=== PATIENT | male | born 1950 | race Caucasian/White ===

== ENCOUNTER 2019-05-23 19:17 | Observation (INO) | payer OTHER, MEDICARE ==
[~2019-05-23] VITALS: Ht 180.3 cm; Wt 63.6 kg
[2019-05-23] MEDS ORDERED: SEROQUEL100 MG PO (19:35)
[2019-05-23] MEDS ORDERED: PLAVIX75 MG PO (19:35)
[2019-05-23] MEDS ORDERED: LISINOPRIL10 MG PO (19:36)
--- NOTE | 2019-05-23 20:21 | NUR ---
50 ML URINE VOIDED
--- NOTE | 2019-05-23 20:24 | NUR ---
BLADDER SCANNER SHOWED 251 ML URINE
[2019-05-23 20:34] VITALS: BP 69/42
[2019-05-23 20:40] LABS: APPEARANCE TURBID (CLEAR); BILIRUBIN NEGATIVE (NEGATIVE); COLOR YELLOW (YELLOW); GLUCOSE NEGATIVE (NEGATIVE); KETONE NEGATIVE (NEGATIVE); NITRITE NEGATIVE (NEGATIVE); PROTEIN TRACE mg/dL (NEGATIVE); SPECIFIC GRAVITY 1.005 (1.005-1.020); UROBILINOGEN NORMAL (NORMAL)
[2019-05-23 20:41] LABS: AMORPHOUS SEDIMENT <1+ /lpf (NONE SEEN); BACTERIA MANY /hpf (NONE SEEN); EPITHELIAL CELLS 0-5 /hpf (0-5); RED CELLS - URINE 0-5 /hpf (0-5); WHITE CELLS - URINE 0-5 /hpf (0-5)
[2019-05-23 21:37] LABS: BASOPHILS 0.2 % (0-2); EOSINOPHILS 4.2 % (0-7); HEMATOCRIT 38.4 % (42.0-54.0); HEMOGLOBIN 13.2 g/dL (13.5-17.5); IMMATURE GRANULOCYTES 0.2 % (0-5); LYMPHOCYTES 44.7 % (15-50); MCH 33.3 pg (26.0-34.0); MCHC 34.4 g/dL (31.0-37.0); MEAN PLATELET VOLUME 10.2 fL (7.4-10.4); MONOCYTES 5.4 % (2-11); NEUTROPHILS 45.3 % (40-80); PLATELET COUNT 245 10x3/uL (130-400); RBC 3.96 10x6/uL (4.20-6.10); RDW 12.9 % (11.5-14.5)
--- NOTE | 2019-05-23 21:47 | NUR ---
90 CC URINE VOIDED
[2019-05-23 21:53] LABS: ALBUMIN 3.8 g/dL (3.4-5.0); ALKALINE PHOSPHATASE 74 U/L (46-116); ALT (SGPT) 21 U/L (10-68); BILIRUBIN - TOTAL 0.31 mg/dL (0.2-1.3); CALC OSMOLALITY 280 mosm/kg (275-300); CARBON DIOXIDE 25.4 mmol/L (21.0-32.0); CHLORIDE - SERUM 103 mmol/L (98-107); CREATININE - SERUM 0.9 mg/dL (0.6-1.3); GLUCOSE 82 mg/dL (74-106); POTASSIUM - SERUM 3.6 mmol/L (3.5-5.1); PROTEIN - SERUM 7.8 g/dL (6.4-8.2); SODIUM 140 mmol/L (136-145); UREA NITROGEN 20 mg/dL (7-18); eGFR NON AFRICAN AMERICAN 90 mL/min (90-120)
[2019-05-23 21:55] LABS: CREATINE KINASE 25 UL (21-232)
--- NOTE | 2019-05-23 22:52 | NUR ---
320 CC URINE VOIDED
--- NOTE | 2019-05-23 23:14 | NUR ---
PT'S HAS GIVEN VERBAL PERMISSION FOR HIS FRIEND DARON VALDEZ TO RECEIVE INFORMATION ON HIS MEDICAL CARE. [phone]
[2019-05-23] MEDS ORDERED: ALBUTEROL SULF8.5 GM INH (23:18)
--- NOTE | 2019-05-23 23:25 | NUR ---
REPORT GIVEN TO INGRIS NUNO
--- NOTE | 2019-05-23 23:30 | NUR ---
PT BP OBSERVED TO BE 55/30 RIGHT ARM. NS BOLUS STARTED IN PRESSURE BAG. NEW BP WITH MANUAL CUFF SYSTOLIC 98. NIBP LEFT ARM 100/70. EDP AWARE.
--- NOTE | 2019-05-23 23:50 | NUR ---
PATIENT RECEIVED TURKEY SANDWICH AND MILK PER REQUEST. REPOSITIONED IN BED PER REQUEST. URINATED IN URINAL PER REQUEST. PT THEN REQUESTS TO GO TO FLOOR ROOM. THIS NURSE NOTIFIED PT THAT SHE WILL GIVE REPORT TO FLOOR NURSE, AND TAKE HIM TO NEW ROOM WHEN POSSIBLE. PT DENIES FURTHER NEEDS AT THIS TIME. NO SIGNS DISTRESS NOTED. RESPIRATIONS APPEAR EVEN AND UNLABORED. WHEN ASKED IF I COULD CALL HIS FAMILY TO UPDATE, PT STATES "I HAVE ALREADY CALLED THEM. THEY WILL BE HERE TOMORROW." WILL CONTINUE TO MONITOR.
[2019-05-24] VITALS: BP 145/82
--- NOTE | 2019-05-24 00:22 | NUR ---
PT PRESENTED FROM ER ON STRETCHER, NO SIGNS OF DISTRESS, NO C/O PAIN AT THIS TIME. PT VSS, CL IN REACH, BED IN LOWEST POSITION. PT PLACED ON A ASHLEY ALARM, ALARM IS ON.
[2019-05-24 00:27] VITALS: BP 145/82; Ht 180.3 cm; Wt 63.6 kg
[2019-05-24 04:00] VITALS: BP 151/71
--- NOTE | 2019-05-24 07:45 | NUR ---
RECIEVE REPORT. RESTING IN BED WITH EYES CLOSED. ASHLEY ALARM ON. IV INFUSING ORDERED. RESPIRATIONS EVEN AND REGULAR. CONTINUE PLAN OF CARE AND SAFETY PRECAUTIONS.
[2019-05-24 07:58] LABS: BASOPHILS 0.3 % (0-2); EOSINOPHILS 4.1 % (0-7); HEMATOCRIT 34.2 % (42.0-54.0); HEMOGLOBIN 11.7 g/dL (13.5-17.5); IMMATURE GRANULOCYTES 0.2 % (0-5); LYMPHOCYTES 28.4 % (15-50); MCHC 34.2 g/dL (31.0-37.0); MCV 96.3 fL (80.0-100.0); MEAN PLATELET VOLUME 10.5 fL (7.4-10.4); MONOCYTES 6.6 % (2-11); NEUTROPHILS 60.4 % (40-80); PLATELET COUNT 227 10x3/uL (130-400); RBC 3.55 10x6/uL (4.20-6.10); RDW 12.9 % (11.5-14.5); WBC 5.8 10x3/uL (4.8-10.8)
[2019-05-24 08:00] LABS: APTT 31.3 SECONDS (22.8-39.4); INR 0.99 (0.85-1.17); PROTIME 12.6 SECONDS (11.6-15.0)
[2019-05-24 08:22] LABS: ALBUMIN 3.2 g/dL (3.4-5.0); ALKALINE PHOSPHATASE 64 U/L (46-116); ALT (SGPT) 19 U/L (10-68); BILIRUBIN - TOTAL 0.29 mg/dL (0.2-1.3); CALC OSMOLALITY 286 mosm/kg (275-300); CARBON DIOXIDE 22.3 mmol/L (21.0-32.0); CHLORIDE - SERUM 110 mmol/L (98-107); CREATININE - SERUM 0.8 mg/dL (0.6-1.3); GLUCOSE 82 mg/dL (74-106); MAGNESIUM - SERUM 1.9 mg/dL (1.8-2.4); PHOSPHOROUS 3.8 mg/dL (2.5-4.9); POTASSIUM - SERUM 4.5 mmol/L (3.5-5.1); PROTEIN - SERUM 6.1 g/dL (6.4-8.2); SODIUM 143 mmol/L (136-145); UREA NITROGEN 22 mg/dL (7-18); eGFR NON AFRICAN AMERICAN > 90 mL/min (90-120)
[2019-05-24 08:39] VITALS: BP 177/85
--- NOTE | 2019-05-24 10:21 | NUR ---
ALERT AND ORIENTED X4. SITTING UP IN BED. REFUSE PHYSICAL THERAPY. PATIENT STATES, "I DON'T WALK, I USE MY WHEELCHAIR. I DON'T NEED YAL, I'M LEAVING AT 11. I'M GOING TO MAKE THE DOCTOR DISCHARGE ME." EXPLAIN DISCHARGE HAS NOT BEEN ORDERED AND DOCTOR NOT ON FLOOR YET. PATIENT REPLIES, "I DON'T CARE, I'M LEAVING."
[2019-05-24 11:34] VITALS: BP 157/90
[2019-05-24 13:37] LABS: UDS - AMPHET NEGATIVE QUAL (NEGATIVE); UDS - BARB NEGATIVE QUAL (NEGATIVE); UDS - BENZO NEGATIVE QUAL (NEGATIVE); UDS - COCAINE NEGATIVE QUAL (NEGATIVE); UDS - OPIATE NEGATIVE QUAL (NEGATIVE); UDS - PCP NEGATIVE QUAL (NEGATIVE); UDS - THC POSITIVE QUAL (NEGATIVE)
[2019-05-24] MEDS ORDERED: LEVAQUIN750 MG PO (14:09)
--- NOTE | 2019-05-24 15:07 | MORECARE ---
CASE MANAGEMENT DISCHARGE SUMMARY PATIENT: MORRIS LAKHANI H UNIT: [id number] ADM DATE: 05/23/19 AGE: 68 : 52 SEX: M ROOM/BED: D.2133 AUTHOR: AMADA RAMACHANDRAN PHYSICIAN: REFERRING PHYSICIAN: MAGALY MILLS MD DATE OF SERVICE: 05/24/19 Discharge Plan Patient Name: MORRIS LAKHANI Facility: [facility]:[place] : 1950 Planned Disposition: Home Anticipated Discharge Date: 05/24/19 Discharge Date: Expected LOS: 1 Initial Reviewer: [email or web address] Initial Review Date: 05/24/2019 Generated: 05/24/19 4:07 pm External Providers External Provider: OTHER-OTHER Next Contact Date: 05/24/2019 Service Request Date: Service Type: Resolution: Reviewer: Comments: External Provider: [facility] Next Contact Date: 05/24/2019 Service Request Date: Service Type: Resolution: Reviewer: Comments: Patient Name: MORRIS LAKHANI Page [phone] at 1507 All edits/amendments must be made on the electronic document DICTATION DATE: 05/24/19 1506 MAINFRAME SOFTWARE DEVELOPER: LUL 05/24/19 1506 RPT#: [id number] DC DATE: STATUS: ADM IN [facility] [address] [place] [address] END OF REPORT
--- NOTE | 2019-05-24 15:58 | MORECARE ---
CASE MANAGEMENT DISCHARGE SUMMARY PATIENT: MORRIS LAKHANI H UNIT: [id number] ADM DATE: 05/23/19 AGE: 68 : 52 SEX: M ROOM/BED: D.2133 AUTHOR: AMADA RAMACHANDRAN PHYSICIAN: REFERRING PHYSICIAN: MAGALY MILLS MD DATE OF SERVICE: 05/24/19 Discharge Plan Patient Name: MORRIS LAKHANI Facility: [facility]:[place] : 1950 Planned Disposition: Home Anticipated Discharge Date: 05/24/19 Discharge Date: Expected LOS: 1 Initial Reviewer: [email or web address] Initial Review Date: 05/24/2019 Generated: 05/24/19 4:58 pm DCPIA - Discharge Planning Initial Assessment Updated by [email or web address]: Bryant Santana on 05/24/19 3:51 pm * Is the patient Alert and Oriented? Yes * How many steps to enter\exit or inside your home? * PCP [facility] PAT[facility] REPORTS ESTABLISHING WITH [facility] ON 06-30-19 * Pharmacy [facility] [place] MAIL ORDER * Preadmission Environment Home with Family * ADLs Independent * Equipment Tub Bench Walker Wheelchair * Other Equipment [facility] - MEDICAL EQUIPMENT PROVIDER * List name and contact numbers for known caregivers / representatives who currently or will assist patient after discharge: BECKA ZARAGOZA, SPOUSE, * Verbal permission to speak to the caregivers and representatives has been obtained from the patient. Yes * Community resources currently utilized None * Please name any agencies selected above. NONE * Additional services required to return to the preadmission environment? No * Can the patient safely return to the preadmission environment? Yes * Has this patient been hospitalized within the prior 30 days at any hospital? No Last DP export: 05/24/19 2:07 p Patient Name: MORRIS LAKHANI Page [phone] at 1558 All edits/amendments must be made on the electronic document DICTATION DATE: 05/24/191557 CIVIL PREPAREDNESS TRAINING OFFICER: LUL 05/24/19 0020 RPT#: [id number] DC DATE: STATUS: ADM IN [facility] [address] [place] [address] END OF REPORT
--- NOTE | 2019-05-24 16:08 | MORECARE ---
CASE MANAGEMENT DISCHARGE SUMMARY PATIENT: MORRIS LAKHANI UNIT: [id number] ADM DATE: 05/23/19 AGE: 68 : 52 SEX: M ROOM/BED: D.8563 AUTHOR: AMADA RAMACHANDRAN PHYSICIAN: REFERRING PHYSICIAN: MAGALY MILLS MD DATE OF SERVICE: 05/24/19 Discharge Plan Patient Name: MORRIS LAKHANI Facility: [facility]:[place] : 1950 Planned Disposition: Home Anticipated Discharge Date: 05/24/19 Discharge Date: Expected LOS: 1 Initial Reviewer: [email or web address] Initial Review Date: 05/24/2019 Generated: 05/24/19 5:07 pm DCP- Discharge Planning Updated by [email or web address]: Bryant Santana on 05/24/19 3:[address] Patient Name: MORRIS LAKHANI Admission Status: ER Accout number: [id number] Admission Date: 05-23-2019 : 1950 Admission Diagnosis: Attending: MEENU MILLS Current LOS: 1 Anticipated DC Date: 05-24-2019 Planned Disposition: Home Primary Insurance: [employer] Discharge Planning Comments: CM RECEIVED ORDER FOR PT BEING UNABLE TO WALK, HOMELESS FROM [place], NEEDS ASSISTANCE DEVICES AND FOR CM TO VERIFY PT'S APPOINTMENT WITH [facility] IN [place]E. CM MET WITH PT IN ROOM TO DISCUSS DISCHARGE PLANNING AND NEEDS. PT REPORTS LIVING AT HOME INDEPENDENTLY WITH ROOMMATE, ISIAH. PT REPORTS IT TO BE OK TO DISCUSS HIS CARE AND TREATMENT WITH ISIAH. ISIAH NOT PRESENT. PT HAS TUB BENCH, WALKER AND WHEELCHAIR FROM [facility]. PT REPORTS ABILITY TO TRANSFER SELF FROM BED TO WHEELCHAIR TO COMMODE AND CHAIRS. PT REPORTS HE CANNOT WALK AND ISIAH CARRIES HIM INTO AND OUT OF THE HOME THAT HAS THREE STEPS. PT HAS NO OUTSIDE SERVICES ASSISTING IN THE HOME. CM DISCUSSED AVAILABILITY OF HOME HEALTH, REHAB SERVICES AND MEDICAL EQUIPMENT. PT WANTS HOSPITAL BED, CM EXPLAINED THAT PT DOES NOT HAVE DIAGNOSIS LISTED AND NO DOCUMENTATION THAT HE HAS TO BE ELEVATED HEAD OF BED GREATER THAN 30 DEGREES THAT CANNOT BE ACHIEVED WITH PILLOWS OR WEDGES. CM EXPLAINED THAT CM CAN FORWARD REQUEST TO [facility] FOR CONSIDERATION [facility] ACCEPTS PT'S INSURANCE. PT SIGNED CONSENT. PT STATES THAT IF HE CANNOT GET ONE THROUGH MEDICARE, HE MAY RENT ONE OR GET IT THROUGH THE [facility]. PT STATES HE HAS AN APPOINTMENT AT [facility] ON 06-30-19 TO ESTABLISH PRIMARY CARE. MARIELLA IS CURRENTLY SLEEPING ON FUTON BED AND ISIAH IS SLEEPING ON AIR MATTRESS AND THIS IS "INCONVIENENT" THAT IS WHY THEY NEED THE HOSPITAL BED. PT DENIES DISCHARGE NEEDS, REPORTS ISIAH IS HERE TO PICK HIM UP FOR DISCHARGE HOME. PT REQUESTED CM FAX HIS RECORD FROM THIS STAY TO [facility] IN [place] TO ASSIST WITH PRIMARY CARE FOLLOW UP IN JUNE. PT DOES NOT WANT TO STAY ANY LONGER. BEDSIDE NURSE NOTIFIED AND WAS ALREADY AWARE. ALVIN PAGED LUIS FOSTER ASKING ABOUT ORDER FOR HOSPITAL BED. CM CALLED [facility], , SPOKE TO [facility] WHO WILL RUN INSURANCE WHEN REFERRAL IS RECEIVED. CM FAXED REFERRAL TO [facility], . CM RECEIVED CALL FROM [facility] COOL ADVISED THAT WITHOUT ORDER, THEY ARE NOT ABLE TO PROCESS. CM RECEIVED CALL FROM LUIS FOSTER, SHE WILL NOT ORDER HOSPITAL BED, PT TO FOLLOW UP WITH PRIMARY CARE AT [facility]. PT HAD DISCHARGED HOME. ALVIN CALLED PT AT [phone], THERE WAS NO ANSWER AND NO MESSAGE MACHINE. CM FAXED PT'S INFORMATION TO [facility] AT [phone] Asphalt Paving Foreman: Bryant Santana NEPIA - Discharge Planning Initial Assessment Updated by [email or web address]: Bryant Santana on 05/24/19 3:51 pm * Is the patient Alert and Oriented? Yes * How many steps to enter\\exit or inside your home? * PCP [facility] EST[facility]LISHING WITH [facility] ON 06-30-19 * Pharmacy [facility] [address] [place] [facility] [place] * Preadmission Environment Home with Family * ADLs Independent * Equipment Tub Bench Walker Wheelchair * Other Equipment VA - MEDICAL EQUIPMENT PROVIDER * List name and contact numbers for known caregivers / representatives who currently or will assist patient after discharge: BECKA ZARAGOZA, SPOUSE, * Verbal permission to speak to the caregivers and representatives has been obtained from the patient. Yes * Community resources currently utilized None * Please name any agencies selected above. NONE * Additional services required to return to the preadmission environment? No * Can the patient safely return to the preadmission environment? Yes * Has this patient been hospitalized within the prior 30 days at any hospital? No Coverage Notice Reviewer: [email or web address] Maddison Hurtado [place] Notice Issued Date-Time: 05/24/2019 13:35 Notice Type: Patient Choice Letter Notice Delivered To: Patient Relationship to Patient: Home And Family Living Professor Name: Delivery Method: HAND - Hand Delivered Yusra Days: Prior Verbal Notification: Recipient Understood Notice: Yes Recipient Signature: Yes Med Rec Note Co-signed by Attending: Coverage Notice Comment: NO MEDICAL EQUIPMENT PROVIDER PREFERENCE. Last DP export: 05/24/19 2:58 p Patient Name: MORRIS LAKHANI Page [id number] at 1608 All edits/amendments must be made on the electronic document DICTATION DATE: 05/24/191606 PRISONER CLASSIFICATION INTERVIEWER: LUL 05/24/191606 RPT#: [id number] DC DATE: STATUS: ADM IN [facility] [address] [place] [address] END OF REPORT
--- NOTE | 2019-05-24 16:12 | NUR ---
ALERT AND ORIENTED X4. SITTING UP IN WHEELCHAIR. DISCHARGE INSTRUCTIONS GIVEN VERBALLY AND WRITTEN. DISCHARGE PAPERS SIGNED ON CHART. DC LT FA IV TIP INTACT. ESCORT TO RIDE VIA WHEELCHAIR.
== END 2019-05-24 16:14 | disposition home or self-care (01) ==
LOC: D.ER 19:17 → D.M2 23:30 → OBSVTIME 23:30 → D.M2 05-24 16:14
PROVIDERS: Family Medicine; ADMIT Emergency Medicine; ATTEND Emergency Medicine
DX: N39.0 Urinary tract infection, site not specified (principal); D64.9 Anemia, unspecified; F17.203 Nicotine dependence unspecified, with withdrawal; I10 Essential (primary) hypertension; Z91.14 Patient's other noncompliance with medication regimen; M19.90 Unspecified osteoarthritis, unspecified site; F41.8 Other specified anxiety disorders; I25.10 Atherosclerotic heart disease of native coronary artery without angina pectoris; R33.9 Retention of urine, unspecified; J44.9 Chronic obstructive pulmonary disease, unspecified